=== PATIENT | male | born 1975 | race Caucasian/White ===

== ENCOUNTER 2023-08-12 09:05 | Outpatient (CLI) | payer OTHER, SELFPAY ==
--- NOTE | ~2023-08-12 | MR_ITS ---
MRI of the cervical spine Clinical History: Spondylosis Technique: Axial T2-weighted and gradient images, and sagittal T1-weighted, T2-weighted, and STIR florinda ges were acquired. Findings: There is no fracture or subluxation of the cervical spine. There are reactive marrow change s due to underlying degenerative disc disease. At C2-C3, there is minimal disc bulge. No spinal canal stenosis, cord compression, or neural foramina l narrowing. At C3-C4, there is moderate degenerative disc narrowing. Disc ossify complex is present, most promine nt in the right paracentral to right foraminal region, with bilateral neural foraminal narrowing. The re is mild canal stenosis without edenilson cord compression. At C4-C5, there is degenerative disc narrowing with disc osteophyte complex. There is resultant mild canal stenosis and mild ventral cord compression. There is bilateral neural foraminal narrowing. At C5-C6, disc osteophyte complex results in moderate canal stenosis and cord compression. There is b ilateral neural foraminal narrowing. At C6-C7, there is disc osteophyte complex with canal stenosis but no edenilson cord compression. There i s bilateral neural foraminal narrowing, severe. No abnormal signal in the spinal cord. Paravertebral soft tissues are unremarkable. Impression: Advanced degenerative spondylosis, with cord compression evident at C4-C5 and C5-C6 and particular. A dditional multilevel neural foraminal narrowing present. Reviewed, dictated and finalized at [facility]. Impression: Advanced degenerative spondylosis, with cord compression evident at C4-C5 and C 5-C6 and particular. Additional multilevel neural foraminal narrowing present.
== END 2023-08-12 09:06 ==
LOC: GOSHIMG 09:07
PROVIDERS: PCP Internal Medicine; Visit Provider Physician Assistant
DX: M47.892 Other spondylosis, cervical region (principal); G95.29 Other cord compression
CPT/HCPCS: 72141

== ENCOUNTER 2023-09-02 09:33 | Outpatient (CLI) | payer OTHER, SELFPAY ==
--- NOTE | 2023-09-02 11:00 | NEURO_ITS ---
Impression: # Complains of right upper extremity pain/discomfort with neck pain. Not diabetic. # Right moderate Carpal Tunnel Syndrome. # No ulnar neuropathy. # Normal needle/EMG exam proximally and distally. # Clinical correlation recommended. Nerve Conduction Studies Anti Sensory Summary Table Stim Site NR Peak (ms) P-T Amp (?V) Site1 Site2 Delta-P (ms) Dist (cm) Zeke (m/s) Right Median Anti Sensory (2-3nd Digit) Wrist 4.0 22.7 Wrist 2-3nd Digit 4.0 14.0 35 Wrist 3.9 22.8 Wrist 2-3nd Digit 4.0 14.0 35 Right Radial Anti Sensory (Base 1st Digit) Wrist 2.8 11.3 Wrist Base 1st Digit 2.8 0.0 Right Ulnar Anti Sensory (5th Digit) Wrist 2.8 19.6 Wrist 5th Digit 2.8 14.0 50 Motor Summary Table Stim Site NR Onset (ms) O-P Amp (mV) Site1 Site2 Delta-0 (ms) Dist (cm) Zeke (m/s) Right Median Motor (Abd Poll Brev) Wrist 4.4 2.2 Elbow Wrist 5.3 30.0 57 Elbow 9.7 1.9 Right Ulnar Motor (Abd Dig Minimi) Wrist 2.6 4.9 A Elbow Wrist 5.4 31.0 57 A Elbow 8.0 3.6 B Elbow Wrist 11.2 0.0 B Elbow 13.8 0.1 F Wave Studies NR F-Lat (ms) L-R F-Lat (ms) Right Median (Mrkrs) (Abd Poll Brev) 31.02 Right Ulnar (Mrkrs) (Abd Dig Min) 31.04 EMG Side Muscle Nerve Root Ins Act Fibs Amp Dur Recrt Comment Right 1stDorInt Ulnar C8-T1 Nml Nml Nml Nml Nml Right Ext Indicis Radial (Post Int) C7-8 Nml Nml Nml Nml Nml Right Ext Digitorum Radial (Post Int) C7-8 Nml Nml Nml Nml Nml Right BrachioRad Radial C5-6 Nml Nml Nml Nml Nml Right PronatorTeres Median C6-7 Nml Nml Nml Nml Nml Right Abd Poll Brev Median C8-T1 Nml Nml Nml Nml Nml Right ABD Dig Min Ulnar C8-T1 Nml Nml Nml Nml Nml Right Biceps Musculocut C5-6 Nml Nml Nml Nml Nml Right Triceps Radial C6-7-8 Nml Nml Nml Nml Nml Right Deltoid Axillary C5-6 Nml Nml Nml Nml Nml MTDD
== END 2023-09-02 09:34 | disposition home or self-care (01) ==
LOC: ANHNEURO 09:34
PROVIDERS: PCP Internal Medicine; Visit Provider Physician Assistant
DX: G56.01 Carpal tunnel syndrome, right upper limb (principal)
CPT/HCPCS: 95886; 95909

== ENCOUNTER 2025-01-14 00:37 | Day surgery (SDC) | payer OTHER, SELFPAY ==
[2024-12-30 13:17] VITALS: BMI 32.3
--- OUTSIDE RECORDS SUMMARY | 2025-01-14 00:40 | XMS_ITS | Clinical Summary ---
Author Organization [facility] Address [address], [facility] [address] [place] [address] Phone Care Team Providers Care Plant Safety Engineer Name Role Phone German Sparks MD Primary Care Provider [phone] Emerita Hare MD Unavailable [phone] Allergies No known active allergies Medications raNITIdine (ZANTAC) 300 MG Tablet Take 300 mg by mouth 2 times daily. Active buPROPion SR (WELLBUTRIN SR) 150 MG TABLET SR 12 HR Take 150 mg by mouth daily. Active HYDROcodone-spring taminophen (NORCO) 5-325 MG Tablet Take 1 Tab by mouth every 4 hours as needed for Mild or more severe pain. 30 Tab 06/22/2018 Active omeprazole (PRILOSEC) 10 MG CAPSULE DELAYED RELEASE Take 10 mg by mouth daily. Active Nebivolol HCl (BYSTOLIC) 10 MG Tablet Take 10 mg by mouth. Active ALPRAZolam (XANAX) 0.5 MG Tablet Take 0.5 mg by mouth. 08/16/2020 Active pantoprazole (PROTONIX) 40 MG Tablet Delayed Response 02/17/2023 Active Xyosted 75 MG/0.5ML Solution Auto-injector 11/13/2022 Activ e tadalafil (CIALIS) 20 MG Tablet Take 1 Tablet by mouth as needed for Erectile Dysfunction. 30 Tablet 03/07/2023 Active Active Problems Problem Noted Date Diagnosed Date Umbilical hernia without obstruction and without gangrene 04/15/2018 Immunizations Immunization Administration Dates Next Due TDAP Vaccine 10/10/2019 Family History Medical History Relation Name Comments No Known Problems Brother Other-comment Father MELISSA L[employer] 2017 No Known Problems Maternal Grandfather No Known Problems Maternal Grandmother No Known Problems Mother No Known Problems Other No Known Problems Paternal Grandfather No Known Problems Paternal Grandmother No Known Problems Sister Relation Name Status Comments Brother Father Alive Maternal Grandfather Maternal Grandmother Mother Alive Other Paternal Grandfather Paternal Grandmother Sister Social History Tobacco Use Types Packs/Day Years Used Date Smoking Tobacco: Some Days Cigarettes Smokeless Tobacco: Current Chew Alcohol Use Standard Drinks/Week Comments Yes 0 (1 standard drink = 0.6 oz pur e alcohol) socially Sex and Gender Information Value Date Recorded Sex Assigned at Not on file Legal Sex Male 7:21 PM CDT Gender Identity Not on file Sexual Orientation Not on file Last Filed Vital Signs Vital Sign Reading Time Taken Comments Blood Pressure 128/84 03/07/2023 10:01 AM OUTSOLE CUTTER MACHINE Pulse 67 03/07/2023 10:01 AM OUTSOLE CUTTER MACHINE Temperature 35.6 C (96 F) 10/10/2019 11:14 PM CDT Respiratory Rate 18 03/07/2023 10:01 AM OUTSOLE CUTTER MACHINE Oxygen Saturation 98% 03/07/2023 10:01 AM OUTSOLE CUTTER MACHINE Inhaled Oxygen Concentration - - Weight 104.3 kg (230 lb) 03/07/2023 10:01 AM OUTSOLE CUTTER MACHINE Height 180.3 cm (5' 11) 03/07/2023 10:01 AM OUTSOLE CUTTER MACHINE Body Mass Index 32.08 03/07/2023 10:01 AM OUTSOLE CUTTER MACHINE Plan of Treatment Health Maintenance Due Date Last Done Comments Hepatitis C Virus (HCV) Screening 1974 Hepatitis B Immunization (1 of 3 - 19+ 3-dose series) 1993 Pneumococcal Immunization (5 0+ years) (1 of 2 - PCV) 1993 Cologuard 2019 Colonoscopy 2019 Colorectal Cancer Screening 2019 Immunochemical Fecal Occult Blood 2019 Zoster Immunization (1 of 2) 2024 Influenza Immunization (#1) 12/27/202406/2015, 02/07/2015, 02/26/2013 SARS-COV-2 Immunization ( - season) 2024 Td Immunization Every 10 Yea rs (Adults With 1 Tdap) 10/09/2029 10/10/2019, 08/07/2011 Respiratory Syncytial Virus (RSV) Immunization (Adult) (1 - 1-dose 75+ series) 2049 DTaP/Tdap/Td Immunization Discontinued 2019, 08/07/2011 Human Papillomavirus (HPV) Immunization Aged Out No longer eligible based on patient's age to complete this topic Meningococcal Immunization (ACWY) Aged Out No longer eligible based on patient's age to complete this topic Rotavirus Immunization Aged Out No lo nger eligible based on patient's age to complete this topic Medical Devices Implanted Type Area Mortgage Loan Processing Clerk Device Identifier Shelf Expiration Date Model / Serial / Lot Patch Srg Mfl Self Expand Strap Pocket Ventralex Sepra Sorbaflex Polyp Eptfe Sml [place] 1.7in [facility] [id number] Implanted:Qty : 1 on 06/22/2018 by Brett Ge MD at [facility] IMPLANT N/A: Umbilical [employer] 09/22/2020 [id number] / [id number] / [id number] Insurance [facility] , [address] [place] [address] [facility] Care Teams Plant Safety Engineer Relationship Specialty Start Date End Date German Sparks MD [address] [place] [id number] PCP - General Internal Medicine 03/06/23 Emerita Hare MD [address] [address] Consulting Physician Urology 03/07/23
--- OUTSIDE RECORDS SUMMARY | 2025-01-14 00:40 | XMS_ITS | Encounter Summary ---
Author Organization [facility] Address [address] [place] [address] Phone Care Team Providers Care Sanding Supervisor Name Role Phone German Sparks MD Primary Care Provider [phone] Emerita Hare MD Unavailable [phone] Reason for Visit * Reason Comments Medication Refill Encounter Details Date Type Department Care Team (Late st Contact Info) Description 10/07/2024 Refill [facility] [address] [place] [address] Emerita Hare MD [address] [address] Medication Refill Social History Tobacco Use Types Packs/Day Years [...] on file Sexual Orientation Not on file documented as of this encounter Miscellaneous Notes * Telephone Encounter - Dianne Preston RN - 10/12/2024 1:28 PM CDT Refill denied - See Refusal reason * Telephone Encounter - Malu Ferguson RN - 10/12/2024 1:26 PM CDT Per nursing clinical judgement, provider to review and approve the medication(s) order(s) if appropriate. Requested Prescriptions Pending Prescriptions Disp Refills tadalafil (CIALIS) 20 MG Tablet [Pharmacy Med Name: TADALAFIL 20MG TABLETS] 30 Tablet 0 Sig: TAKE 1 TABLET BY MOUTH DAILY NEEDED FOR ERECTILE DYSFUNCTION. USE 1/2 A TABLET BY MOUTH 4 HOURS PRIOR TO SEX Erectile Dysfunction Medication Protocol Failed - 10/12/2024 1:26 PM Failed - Visit with relevant provider in past 12 months or upcoming 90 days Recent Visits No visits were found meeting these conditions. Showing recent visits within past 365 days and meeting all other requirements Future Appointments No visits were found meeting these conditions. Showing future appointments within next 90 days and meeting all other requirements Failed - Erectile dysfunction on problem list Passed - Absence of nitrates on med list documented in this encounter Plan of Treatment Not on file documented as of this encounter Visit Diagnoses Not on filedocumented in this encounter Care Teams Sanding Supervisor Relationship Specialty Start Date End Date German Sparks MD [facility] [place] [address] PCP - General Internal Medicine 03/06/23 Emerita Hare MD [address] [address] Consulting Physician Urology 03/07/23 documented as of this encounter
--- OUTSIDE RECORDS SUMMARY | 2025-01-14 00:40 | XMS_ITS | Encounter Summary ---
Author Organization [facility] Address [address] [facility] [place] [address] Care Team Providers Care Emulsion Operator Name Role Phone Unavailable Primary Care Provider Unavailabl e Encounter Details Date Type Department Care Team (Late st Contact Info) Description 04/17/2020 Lab Requisition [facility] [address] [place] [id number] Gavin Lewis MD [facility] [address] Social History Tobacco Use Types Packs/Day Years Used Date Smoking Tobacco: Never Assessed Sex and Gender Information Value Date Recorded Sex Assigned at Not on file Legal Sex Male 12:07 PM CDT Gender Identity Not on file Sexual Orientation Not on file documented as of this encounter Plan of Treatment Not on file documented as of this encounter Procedures Procedure Name Priority Date/Time Associated Diagnosis Comments DERMATOPATHOLOGY Routine 04/14/2020 12:0 0 AM SHRIMP TRAWLER CAPTAIN documented in this encounter Results * DERMATOPATHOLOGY (04/14/2020 12:00 AM SHRIMP TRAWLER CAPTAIN) Case Report Dermatopathology Report Case: [id number] Authorizing Provider: Gavin Lewis MD Collected: 04/14/2020 12:00 AM Ordering Location: [facility] Received: 04/17/2020 10:53 AM Pathologist: Haley Daugherty MD Specimens: A) - Skin, mid nasal bridge B) - Skin, nose supra tip 0 1:20 PM SHRIMP TRAWLER CAPTAIN DERMATOPATHOLOGY LABORATORY Final Diagnosis Specimen A. SKIN, mid nasal bridge: ANGIOFIBROMA (FIBROUS PAPULE) (D21.0) (see microscopic description) Specimen B. SKIN, nose supra tip: ANGIOFIBROMA (FIBROUS PAPULE) (D21.0) (see microscopic description) 0 1:20 PM SHRIMP TRAWLER CAPTAIN DERMATOPATHOLOGY LABORATORY at [address] [employer] TRAWL[employer]TAIN Clinical History A-B: FP, R/O adnexal, R/O BCC. 0 1:20 PM SHRIMP TRAWLER CAPTAIN DERMATOPATHOLOGY LABORATORY Gross Description Specimen A: Received is one formalin filled container labeled with the patient's name and designated mid nasal bridge. The specimen consists of a shave biopsy measuring [id number]. Jar 0. Specimen B: Received is one formalin filled container labeled with the patient's name and designated nose supra tip. The specimen consists of a shave biopsy measuring [id number]. Jar 0. 0 1:20 PM [facility] Microscopic Description Specimen A. SKIN, mid nasal bridge: This dome-shaped lesion contains dilated blood vessels, coarse collagen bundles, and stellate fibroblasts. Additional deeper sections were obtained and reviewed. Specimen B. SKIN, nose supra tip: This dome-shaped lesion contains dilated blood vessels, coarse collagen bundles, and stellate fibroblasts. Additional deeper sections were obtained and reviewed. 0 1:20 PM SHRIMP TRAWLER CAPTAIN DERMATOPATHOLOGY LABORATORY Disclaimer An external and internal positive and negative controls are appropriate for the histochemical, immunohistochemical and immunofluorescence stain(s) in this case (if any), except where stated explicitly. The performance characteristics of the stain(s) cited in this report were developed and its performance characteristic determined by the Dermatopathology Laboratory at [facility], directed by Dr. Julissa Simon. These tests need not be, and therefore are not, approved by the [place] Food and Drug Administration. The tests are used for clinical purposes. Billing Codes Specimen Charges Stain Charges 09794 [id number] 1 1 0 1:20 PM SHRIMP TRAWLER CAPTAIN DERMATOPATHOLOGY LABORATORY Embedded Images 0 1:20 PM SHRIMP TRAWLER CAPTAIN DERMATOPATHOLOGY LABORATORY Pathology/Cytology TISSUE SPECIMEN FROM SKIN / Unknown 04/14/2020 04/17/2020 10:53 AM SHRIMP TRAWLER CAPTAIN Miscellaneous samples (specimen) TISSUE SPECIMEN FROM SKIN / Unknown 04/14/2020 04/17/2020 10:53 AM SHRIMP TRAWLER CAPTAIN Gaivn Lewis MD LAB - PATHOLOGY/CYTOLOGY ORDERAB LES Final Result DERMATOPATHOLOGY LABORATORY [facility] - Department of Dermatology [facility] [address] [place] [address], [address] [phone] documented in this encounter Visit Diagnoses Not on filedocumented in this encounter
--- OUTSIDE RECORDS SUMMARY | 2025-01-14 00:40 | XMS_ITS | Clinical Summary ---
Author Organization [facility] Address [address] [place] [address] Care Team Providers Care Boat Joiner Name Role Phone German Sparks MD Primary Care Provider + Allergies No known active allergies Medications ascorbic acid (VITAMIN C) 500 mg tablet,chewable Take 1 tablet by mouth 2 times daily until finished 60 tablet/chew tab 7 Active HYDROcodone-spring taminophen (NORCO) 5-325 mg per tablet every 6 (six) hours as needed 0 9 Active nebivolol (BYSTOLIC) 5 mg tablet Take 5 mg by mouth daily Active pantoprazole DR (PROTONIX) 40 mg EC tablet TK 1 T PO ONCE D 0 Active multivitamin with minerals tablet Take 1 tablet by mouth daily Active cholecalciferol (VITAMIN D-3) 2000 unit capsule 2,000 Units Active ALPRAZolam (XANAX) 0.5 mg tablet Take 1 tablet (0.5 mg total) by mouth 3 (three) times a day as needed for anxiety 9 tablet 1 Active benzonatate (TESSALON) 200 mg capsuleIndicati ons:Cough Take 1 capsule (200 mg total) by mouth 3 (three) times a day 20 capsule 2 1 Active Additional Information Patient not taking.Reported on 09/18/2021 Active Problems Problem Noted Date Diagnosed Date Severe protein-calorie malnutrition 08/14/2020 Acute deep vein thrombosis ( DVT) of popliteal vein of right lower extremity 08/11/2020 Factor 5 Leiden mutation, heterozygous 1 Acute hypoxemic respiratory failure 07/28/2020 Assessment & Plan (07/28/2020 6:45 AM CDT): Patient was on 10 L last evening however desatted and is now requiring 40 L on Airvo. Will put patient on bed rest. Continuous pulse ox. Self prone if possible. Essential hypertension 07/28/2020 Assessment & Plan (07/28/2020 6:43 AM CDT): Continue Bystolic with hold parameters Class 1 obesity in adult 07/28/2020 Pneumonia due to COVID-19 virus 07/27/2020 Assessment & Plan (07/28/2020 6:44 AM CDT): Patient symptoms began on 07/20/2020. He is out of the window for remdesivir, will discontinue at this time. Continue Decadron. Will check a procalcitonin although low suspicion for superimposed bacterial infection. Continue with supportive care. Will give patient 1 L bolus as patient has had poor intake for the last 9 days. Will continue with some maintenance fluids. Encounter for screening colonoscopy 06/23/2019 Overview (06/23/2019): Added automatically from request for surgery [id number] BMI 29.0-29.9,adult 12/04/2016 Testicular hypofunction 12/04/2016 Healthcare maintenance 11/11/2016 Medication management 11/11/2016 Depression 09/11/2013 Overview (07/31/2016): DEPRESSIVE DISORDER NEC Gastroesophageal reflux disease 09/11/2013 Overview (08/01/2016): ESOPHAGEAL REFLUX Assessment & Plan (07/28/2020 6:43 AM CDT): Patient is quite nauseated. Will change Protonix to IV until patient is left nauseated and can take p.o.. Resolved Problems Problem Noted Date Diagnosed Date Resolved Date Mild malnutrition 08/01/2020 08/14/2020 Immunizations Immunization Administration Dates Next Due Influenza, Quadrivalent, Spl it, Preservative Free, Intradermal 01/29/2016,02/07/2015 Influenza, Split 02/03/2012,02/07/2011 Influenza, Trivalent, IM (MDV) 02/26/2013 Tdap 08/07/2011 Surgical History Surgery Date Site/Laterality Comments ELBOW SURGERY CARPAL TUNNEL RELEASE HERNIA REPAIR COLONOSCOPY 07/19/2022 Medical History Medical History Date Comments Hx Other Medical 2007 concussion Pulmonary embolism 2009 pulmonary emb olism Hx Other Medical 2009 fibula fx Testicular hypofunction Esophageal reflux Hypertension Factor V Leiden this hx obtained by mother on 07/28/2020 Factor 5 Leiden mutation, heterozygous Family History Medical History Relation Name Comments Other Brother 2 Alive and well; Other Father Alive and well; Parkinsonism Maternal Grandmother Nicolette on's disease; Other Mother Alive and well; Diabetes Mother's Brother Diabetes me llitus; Relation Name Status Comments Brother 1 Alive Brother 2 Father Alive Maternal Grandmother Mother Alive Mother's Brother Social History Tobacco Use Types Packs/Day Years Used Date Smoking Tobacco: Former Smokeless Tobacco: Current Chew Alcohol Use Standard Drinks/Week Comments Yes 0 (1 standard drink = 0.6 oz pur e alcohol) PHQ-2 Answer Date Recorded PHQ-2 Total Score (If total score is 3 or more points, staff should administer the PHQ-9) 0 08/15/2020 Personal Safety Answer Date Recorded Have you ever been in or are you currently in a harmful physical or emotional relationship or is someone making you feel afraid or unsafe? 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 Gender Identity Male 10/31/2021 1:45 PM CDT Sexual Orientation Straight 10/31/2021 1: 45 PM CDT Obstetrics History Last Filed Vital Signs Vital Sign Reading Time Taken Comments Blood Pressure 126/72 07/19/2022 11:30 AM CDT Pulse 73 07/19/2022 11:30 AM CDT Temperature 36.8 C (98.2 F) 07/19/2022 11:30 AM CDT Respiratory Rate 18 07/19/2022 11:30 AM CDT Oxygen Saturation 98% 07/19/2022 11:30 AM CDT Inhaled Oxygen Concentration - - Weight 108.9 kg (240 lb) 07/19/2022 9:54 AM CDT Height 180.3 cm (5' 10.98) 07/19/2022 9:54 AM C DT Body Mass Index 33.49 07/19/2022 9:54 AM CDT Plan of Treatment Health Maintenance Due Date Last Done Comments Hepatitis C Screening 1975 Prostate Cancer Screening-PSA 1974 Hepatitis B Screening 1992 Regular Well Visit/Exam 18-64 12/04/2017 12/04/2016 Depression Screening 07/27/2021 07/27/2020, 12/04/2016, 11/11/2016 Zoster Vaccine (1 of 2) 2024 Influenza Vaccine (#1) 2024 6, 02/07/2015, 02/26/2013, Additional history exists DTaP/Tdap/Td Vaccine (3 - Td or Tdap) 10/09/2029 10/10/2019, 08/07/2011 Colon Cancer Screening-Colonoscopy 07/19/2032 07/19/2022 Pneumococcal vaccine <65 Aged Out No longer eligible based on patient's age to complete this topic Procedures Procedure Name Priority Date/Time Associated Diagnosis Comments COLONOSCOPY 07/19/2022 9:50 AM CDT from Last 3 Months or Most Recently Relevant to Health Maintenance Results * COLONOSCOPY (07/19/2022 9:50 AM CDT) Anatomical Region Laterality Modality Other Narrative Procedure Note Ministerio Nixon MD - 07/19/2022 9:50 AM CDT [facility] Patient Name: Slade Downs Procedure Date: 07/19/2022 9:50 AM Date of : 1975 Admit Type: Outpatient Age: 47 Gender: Male Attending MD: Ministerio Nixon M.D. Room: [facility] ENDOSCOPY ROOM 2 Note Status: Finalized Patient Profile: Refer to note in patient chart for documentation of history and physical. Procedure: Colonoscopy Indications: Screening for colorectal malignant neoplasm, Thisis the patient's first colonoscopy Referring MD: German Sparks M.D. Providers: Ministerio iNxon M.D. Impression: - Hemorrhoids found on perianal exam. - One 4 mm polyp in the ascending colon. - One polyp. - No specimens collected. Recommendation: - Await pathology results. - Repeat colonoscopy in 10 years [facility]. - Return to primary care physician as previously scheduled. Medicines: Propofol per Anesthesia Complications: No immediate complications. Estimated Blood Loss: Estimated blood loss: none. Procedure: Pre-Anesthesia Assessment: - This assessment was completed [Time ofAssessment] prior to the administration of sedation. The benefits, risks and alternatives of theprocedure and sedation were discussed and informed consentwas obtained. All questions were answered. Please referto the signed informed consent document in the medical record. The bowel preparation used was Miralax and bisacodyl tablets via split dose instruction. The scope was passed under direct vision. TheColonoscope [id number] was introduced through the anus and advanced to the the cecum, identified by appendiceal orifice and ileocecal valve. The colonoscopy was performed without difficulty. The patient tolerated the procedure well. The qualityof the bowel preparation was adequate to identifypolyps. The ileocecal valve, appendiceal orifice, andrectum were photographed. Findings: Hemorrhoids were found on perianal exam. A 4 mm polyp was found in the ascending colon. The polyp was sessile. Verification of patient identification for the specimen was done bythe physician and nurse using the patient's name and date.Estimated blood loss was minimal. The exam was otherwise normal throughout the examined colon. Electronically signed by Ministerio Nixon M.D. Ministerio Nixon M.D. 07/19/2022 10:56:58 AM Number of Addenda: 0 Note Initiated On: 07/19/2022 9:50 AM Procedure Code(s): --- Professional --- G0121, Colorectal cancer screening; colonoscopy on individual not meeting criteria for high risk --- Technical --- G0121, Colorectal cancer screening; colonoscopy on individual not meeting criteria for high risk Diagnosis Code(s): --- Professional --- D12.2, Benign neoplasm of ascending colon K64.9, Unspecified hemorrhoids Z12.11, Encounter for screening for malignant neoplasm of colon --- Technical --- D12.2, Benign neoplasm of ascending colon K64.9, Unspecified hemorrhoids Z12.11, Encounter for screening for malignant neoplasm of colon CPT copyright 2020 [employer] [place] [employer]. All rights reserved. The codes documented in this report are preliminary and upon editor book reviewmay be revised to meet current compliance requirements. Recognized by the [place] [employer] for promoting quality in endoscopy Ministerio Nixon MD ENDOSCOPY PROCEDURES Final Re sult from Last 3 Months or Most Recently Relevant to Health Maintenance Insurance [facility] [place] [id number] [facility] CHOICE PLUS [employer] SIG [id number] [place] [id number] WORKERS COMPENSATION GENERIC Advance Directives For more information, please contact: [phone] * Full Code (Latest Code Status on File) Date Activated Date Inactivated Comments 07/19/2022 9:50 AM 07/19/2022 3:57 PM * Full Code Date Activated Date Inactivated Comments 07/19/2022 9:49 AM 07/19/2022 9:50 AM * Full Code Date Activated Date Inactivated Comments 07/27/2020 4:54 PM 08/16/2020 7:39 PM Care Teams Boat Joiner Relationship Specialty Start Date End Date German Sparks MD [id number] [facility] [place] [id number] PCP - General 07/26/16
--- NOTE | 2025-01-14 12:45 | WPDANESEPPF ---
Anes - Initial Pre Proc Eval Procedure: Operation Date: 01/14/25 14:00 Proposed Procedures p Esophagogastroduodenoscopy - Brandin Mary MD s [facility] Hemorrhoid Treatment - Brandin Mary MD Date/Time: 01/14/25 12:45 Surgeon: Brandin Mary MD Pre Op Diagnosis: GERD without esophagitis/hemorrhoids Patient Data Age: 49 Gender: M Height: 1.8 m Weight: 105 kg Allergies Allergy/AdvReac Type Severity Reaction Status Date / Time No Known Allergies Allergy Verified 12/31/24 13:43 Home Medications ?Medication ?Instructions ?Recorded ?Confirmed ?Type anastrozole 1 mg tablet (Arimidex) 1 mg PO DAILY 09/16/23 12/31/24 History hydrocodone 5 mg-acetaminophen 325 1 tablet PO Q6H PRN pain 09/16/23 12/31/24 History mg tablet nebivolol 5 mg tablet 5 mg PO DAILY 09/16/23 12/31/24 History pantoprazole 40 mg tablet,delayed 40 mg PO QAM 09/16/23 12/31/24 History release testosterone enanthate 100 mg/0.5 100 mg subcut WEEKLY 09/16/23 12/31/24 History mL subcutaneous auto-injector (Xyosted) Patient hx anesthesia problems: none Family hx anesthesia problems: none Results Review: All pre-operative results and documents have been reviewed as part of the pre-operative evaluation. [facility] Past Medical History Medical History (Updated 01/14/25 @ 12:45 by Slade Everett MD) Obesity GERD (gastroesophageal reflux disease) HTN (hypertension) Surgical History Surgical History (Updated 01/14/25 @ 12:45 by Slade Everett MD) H/O hernia repair Social History Social History Smoking status: Current some day smoker Tobacco type: cigarettes Additional smoking assessment comments: Patient stated he smokes 1 or 2 cigarettes per week. Alcohol intake: current Alcohol use details: weekends Substance use: never Substance use type: does not use Do You Feel Safe in your Home?: Yes Lack of Transportation: No Lack of Food: Never True Current Housing: I Have Housing Concerned About Future Housing: No Difficulty Paying Gas/Electric Bills: No Difficulty Paying for Meds: No Currently Unemployed: No Education: High School Diploma/GED Difficulty w/ Childcare or Family Care: No Living arrangements: with family Spiritual care concerns: No Anes - Eval Final PreProcedure Day of Procedure 01/14/25 12:45 Patient weight: obese Heart: regular rate and rhythm Lungs: clear to auscultation Airway: Mallampati scale class II Neurological: alert and oriented Last oral intake: >/= 8 hours ASA classification: III Emergent: no Anesthetic plan: proceed Anesthesia type and monitoring: general GIVS and standard monitoring Results Review: All pre-operative results and documents have been reviewed as part of the pre-operative evaluation. Informed Consent: The patient's anesthetic plan and its attendant risks and benefits were discussed with the patient/family/POA. Questions were solicited and answers provided to the satisfaction of the patient/family/POA.
[2025-01-14 12:53] VITALS: BP 132/79; PULSE 67; RESP 18; TEMP 36.2; O2SAT 98
[2025-01-14] MEDS: LACTATED RINGERS 1,000 ML 150 ML IV CONT (12:59)
--- NOTE | 2025-01-17 07:21 | SUR.PREOP ---
Dr. Everett met with pt to go over anesthesia care plan, patient told anesthesologist that he ate breakfast in the am and chewed tobacco that morning of the procedure. Procedure cancelled because of not being NPO for 6 hours. Office notified to contact pt to get him rescheduled.
== END 2025-01-14 13:20 | disposition home or self-care (01) ==
PROVIDERS: PCP Internal Medicine; Visit Provider Internal Medicine Gastroenterology
PROC: 0DJ08ZZ Inspection of Upper Intestinal Tract, Via Natural or Artificial Opening Endoscopic (ICD-10-PCS; principal; 2025-01-14 14:00)
PROC: (CPT 46930; 2025-01-14 14:00)
DX: K21.9 Gastro-esophageal reflux disease without esophagitis (principal); Z53.09 Procedure and treatment not carried out because of other contraindication; F17.220 Nicotine dependence, chewing tobacco, uncomplicated
CPT/HCPCS: 99212; G0463; J7120